=== PATIENT | female | born 1970 | race Hispanic/Latino ===

== ENCOUNTER 2020-12-18 09:00 | Outpatient (CLI) | payer BC ==
--- NOTE | 2020-12-18 13:19 | Mammography Report ---
DIGITAL SCREENING MAMMOGRAM WITH TOMOSYNTHESIS WITH CAD, 12/18/2020 CLINICAL INFORMATION / INDICATION: Routine Screening Mammography. TECHNIQUE: Digital bilateral 2D and 3D mammography with tomosynthesis was obtained in the craniocaud al and mediolateral oblique projections. Computer-Aided Detection (CAD) analysis was used for interp retation of this study. COMPARISON: 12/13/2019, 12/13/2018 FINDINGS: Breast Density: The breasts are heterogeneously dense, which may obscure small masses. No dominant mass, suspicious calcifications, or architectural distortion in either breast. Biopsy clip, left breast. Overall, no interval change. IMPRESSION: No mammographic evidence of malignancy. Follow up recommendation: Routine yearly BI-RADS Category 2: Benign. A "normal" or negative report should not discourage follow up or biopsy of a clinically significant f inding. A written summary of these findings will be mailed to the patient. The patient will be entered into a mammography reporting system which will generate a reminder letter for the patient's next appointmen t at the appropriate interval. The [employer] recommends yearly mammograms starting at age 40 and continuing as l felipe as a woman is in good health. Breast MRI is recommended for women with an approximate 20-25% or greater lifetime risk of breast cancer, including women with a strong family history of breast or ova melany cancer or who have been treated for Hodgkin's disease. Signer Name: Lesli Zaidi MD Signed: 12/18/2020 1:15 PM Workstation Name: [id number]
== END 2020-12-18 09:01 | disposition home or self-care (01) ==
LOC: SPVWC 09:00
PROVIDERS: ATTEND Surgery
DX: Z12.31 Encounter for screening mammogram for malignant neoplasm of breast (principal)
CPT/HCPCS: 77063; 77067

== ENCOUNTER 2022-01-05 10:14 | Outpatient (CLI) | payer BC ==
--- NOTE | 2022-01-07 14:22 | Mammography Report ---
DIGITAL SCREENING MAMMOGRAM WITH CAD, 01/05/2022 CLINICAL INFORMATION / INDICATION: Routine screening mammography. TECHNIQUE: Digital bilateral 2D mammography was obtained in the craniocaudal and mediolateral obliqu e projections. This examination was interpreted with the benefit of Computer-Aided Detection analysis . COMPARISON: 12/18/2020, 12/13/2019 FINDINGS: Breast Density: The breasts are heterogeneously dense, which may obscure small masses. No dominant mass, suspicious calcifications, or architectural distortion in the right breast. There i s a new 7 mm round nodule present in the left breast at 3-4:00, posterior depth. This will need furth er evaluation with left breast ultrasound. No additional significant interval change. Biopsy clips are again noted in the left breast. IMPRESSION: New 7 mm rounded nodule in the left breast at 3-4:00, posterior depth. Recommend further evaluation with left breast ultrasound. Follow up recommendation: Ultrasound BI-RADS Category 0: INCOMPLETE. Needs additional imaging evaluation and/or prior mammograms for carol lara. A "normal" or negative report should not discourage follow up or biopsy of a clinically significant f inding. A written summary of these findings will be mailed to the patient. The patient will be entered into a mammography reporting system which will generate a reminder letter for the patient's next appointmen t at the appropriate interval. The [employer] recommends yearly mammograms starting at age 40 and continuing as l felipe as a woman is in good health. Breast MRI is recommended for women with an approximate 20-25% or greater lifetime risk of breast cancer, including women with a strong family history of breast or ova melany cancer or who have been treated for Hodgkin's disease. Signer Name: Lesil Zaidi MD Signed: 01/07/2022 2:18 PM Workstation Name: [id number]
== END 2022-01-05 10:15 | disposition home or self-care (01) ==
LOC: SPVWC 10:14
PROVIDERS: ATTEND Surgery
DX: Z12.31 Encounter for screening mammogram for malignant neoplasm of breast (principal)
CPT/HCPCS: 77067

== ENCOUNTER 2022-01-20 10:04 | Outpatient (CLI) | payer BC ==
--- NOTE | 2022-01-20 11:48 | Ultrasound Report ---
ULTRASOUND BREAST LEFT LIMITED, 01/20/2022 CLINICAL INFORMATION / INDICATION: N63.22 UNSPECIFIED LUMP IN THE LEFT BREAST,UPPER INNER QUADRANT. P atient presents as a callback from screening mammogram for further evaluation of a nodular density in the left breast. TECHNIQUE: Targeted ultrasound evaluation was performed of the area of interest. COMPARISON: Prior mammogram 01/05/2022 FINDINGS: Corresponding with the nodular density seen on recent mammogram, there is a complicated cyst versus o vj circumscribed hypoechoic mass in the left breast 4:00 position located 4 cm the nipple measuring up to 7 x 4 x 6 mm. The nodule is parallel. No internal vascularity is demonstrated. IMPRESSION: 1. A complicated cyst versus oval circumscribed hypoechoic mass corresponds with the mammographic fin ding and is considered low suspicion for malignancy. Recommend attempt at ultrasound-guided aspiratio n, and if the lesion fails to aspirate, ultrasound-guided biopsy could be performed. Follow up recommendation: Biopsy BI-RADS Category 4: SUSPICIOUS FOR MALIGNANCY. A normal or "negative" report should not preclude biopsy or follow-up of a clinically suspicious find ing. Signer Name: Shabana Hoyt MD Signed: 01/20/2022 11:03 AM Workstation Name: [id number]
== END 2022-01-20 10:05 | disposition home or self-care (01) ==
LOC: US 10:04
PROVIDERS: ATTEND Surgery
DX: N63.22 Unspecified lump in the left breast, upper inner quadrant (principal)

== ENCOUNTER 2022-01-27 15:19 | Outpatient (CLI) | payer BC | END 2022-01-27 15:20 | disposition home or self-care (01) | LOC: LABHHL 15:19 | PROVIDERS: ATTEND Surgery | DX: Z09 Encounter for follow-up examination after completed treatment for conditions other than malignant neoplasm (principal); N61.0 Mastitis without abscess | CPT/HCPCS: 88112; 88161 ==

== ENCOUNTER 2022-02-02 09:42 | Outpatient (CLI) | payer BC ==
--- NOTE | 2022-02-04 12:11 | Mammography Report ---
DIGITAL DIAGNOSTIC MAMMOGRAM WITH CAD CONVENTIONAL, 02/02/2022 CLINICAL INFORMATION / INDICATION: Postbiopsy mammogram following left breast cyst aspiration. TECHNIQUE: Digital left mammographic imaging was performed. This examination was interpreted with the benefit of Computer-aided Detection analysis. COMPARISON: Prior mammogram 01/05/2022 FINDINGS: Breast Density: The breasts are heterogeneously dense, which may obscure small masses. No dominant mass, suspicious calcifications or architectural distortion in the left breast. The previously described nodular density in the 4:00 position of the left breast has resolved following cyst aspiration, compatible with a benign etiology. There is a stable biopsy clip seen in the left breast. IMPRESSION: 1. The previously described nodular density in the left breast resolved following cyst aspiration, compatible with a benign etiology. No suspicious mammographic abnormality identified. Follow up recommendation: Routine yearly BI-RADS Category 2: BENIGN. A "normal" or negative report should not discourage follow up or biopsy of a clinically significant finding. A written summary of these findings will be mailed to the patient. The patient will be entered into a mammography reporting system which will generate a reminder letter for the patient's next appointment at the appropriate interval. According to the [employer], yearly mammograms are recommended starting at age 40 and continuing as long as a woman is in good health. Breast MRI is recommended for women with an approximately 20-25% or greater lifetime risk of breast cancer, including women with a strong family history of breast or ovarian cancer and women who have been treated for Hodgkin's disease. Signer Name: Shabana Hoyt MD Signed: 02/04/2022 10:57 AM Workstation Name: [id number]
== END 2022-02-02 09:43 | disposition home or self-care (01) ==
LOC: SPVWC 09:42
PROVIDERS: ATTEND Surgery
DX: N63.22 Unspecified lump in the left breast, upper inner quadrant (principal)